=== PATIENT | male | born 1990 | race Hispanic/Latino ===

== ENCOUNTER → 2025-01-05 | Day surgery (SDC) | payer OTHER ==
[~2025-01-05] MED LIST: B12 ACTIVE1000 MCG PO; LIDOCAINE HCL 2% LOCAL INJ 5 ML SDV VIAL INJ ONE; MAGNESIUM OXID400 MG PO; METFORMIN HCL500 M2 PO; MIDAZOLAM HCL 2 MG/2 ML VIAL ONE; OMEGA 3 1,0001 EACH PO; PROPOFOL IV EMULSION 10 MG/ML 20 ML VIAL ONE; VITAMIN C1000 MG PO
[2025-01-05] MEDS: LACTATED RINGER'S 1,000 ML ONE (08:55)
[2025-01-05 10:17] VITALS: TEMP 97.5
[2025-01-05 10:40] VITALS: BP 139/88; PULSE 75; RESP 18; O2SAT 98
== END | disposition home or self-care (01) ==
LOC: OR 05:00
PROVIDERS: ATTEND Internal Medicine Gastroenterology
DX: K62.5 Hemorrhage of anus and rectum (principal); D12.2 Benign neoplasm of ascending colon; D12.0 Benign neoplasm of cecum; D12.3 Benign neoplasm of transverse colon; K57.30 Diverticulosis of large intestine without perforation or abscess without bleeding; K64.8 Other hemorrhoids; Z87.19 Personal history of other diseases of the digestive system; K76.0 Fatty (change of) liver, not elsewhere classified; R74.8 Abnormal levels of other serum enzymes; E11.9 Type 2 diabetes mellitus without complications; R03.0 Elevated blood-pressure reading, without diagnosis of hypertension; Z79.84 Long term (current) use of oral hypoglycemic drugs; Z68.41 Body mass index [BMI] 40.0-44.9, adult
CPT/HCPCS: 45385; J2003; J2250; J2704; J7121; 45384

== ENCOUNTER 2025-01-17 23:12 | Inpatient (IN) | payer OTHER ==
[~2025-01-17] VITALS: Ht 160 cm; Wt 112.2 kg
[~2025-01-17 23:12] MED LIST changes: -LIDOCAINE HCL 2% LOCAL INJ 5 ML SDV VIAL INJ ONE; -MIDAZOLAM HCL 2 MG/2 ML VIAL ONE; -PROPOFOL IV EMULSION 10 MG/ML 20 ML VIAL ONE
[2025-01-17 23:18] VITALS: TEMP 99.1
[2025-01-17] MEDS ORDERED: SODIUM CHLORIDE 0.9% 1000ML 1,000 ML IV SCH (23:30)
[2025-01-17] MEDS: SODIUM CHLORIDE 0.9% 1000ML 1,000 ML IV STA (23:42)
[2025-01-17 23:54] LABS: BASOPHILS % 0.3 % (0.0-1.0); EOSINOPHILS # (AUTO) 0.4 (0.0-0.4); HEMATOCRIT 34.3 % (38.2-49.6); HEMOGLOBIN 11.2 g/dL (14.0-18.0); LYMPHOCYTES % 24.7 % (18.0-39.1); MEAN CORPUSCULAR HEMOGLOBIN 28.6 pg (28-32); MEAN CORPUSCULAR HGB CONC 32.7 g/dL (31-35); MEAN CORPUSCULAR VOLUME 87.5 fL (81-99); MONOCYTES # (AUTO) 0.5 (0.2-0.8); NEUTROPHILS % 66.4 % (38.7-80.0); PLATELET COUNT 333 x10e3/uL (140-360); RED BLOOD COUNT 3.92 x10e6/uL (4.3-5.7); RED CELL DISTRIBUTION WIDTH 12.6 % (11.7-14.4); WHITE BLOOD COUNT 12.14 x10e3/uL (4.8-10.8)
[2025-01-18] VITALS (11 sets, daily range): BP systolic 100–116; BP diastolic 63–86; PULSE 60–88; RESP 16–20; TEMP 97.3–98.4; O2SAT 96–100
[2025-01-18 00:02] LABS: INR 0.97; PARTIAL THROMBOPLASTIN TIME 28.2 seconds (23.8-35.5); PROTHROMBIN TIME 13.5 seconds (11.9-14.5)
[2025-01-18 00:11] LABS: ALBUMIN 3.9 g/dL (3.5-5.0); ALBUMIN/GLOBULIN RATIO 1.3 (0.8-2.0); ANION GAP 15.8 mmol/L (8-16); BILIRUBIN,TOTAL 0.2 mg/dL (0.2-1.2); CALCIUM 9.4 mg/dL (8.4-10.2); CREATININE, SERUM 0.96 mg/dL (0.72-1.25); POTASSIUM 3.8 mmol/L (3.5-5.1)
[2025-01-18] MEDS ORDERED: SODIUM CHLORIDE 0.9% 100 ML ONE (00:59)
[2025-01-18] MEDS ORDERED: IOPAMIDOL 370 MG/ML 100 ML INFUS..BTL INJ ONE (01:00)
[2025-01-18 01:46] LABS: HEMATOCRIT 28.9 % (38.2-49.6); HEMOGLOBIN 9.4 g/dL (14.0-18.0)
[2025-01-18] MEDS ORDERED: DEXTROSE 50% SYRINGE 50 ML IV PRN (02:30)
[2025-01-18] MEDS: SODIUM CHLORIDE 0.9% 1000ML 1,000 ML IV SCH (03:08)
[2025-01-18] MEDS: SODIUM CHLORIDE 0.9% 250ML 250 ML IV ONE (03:30)
[2025-01-18] MEDS ORDERED: MOUNJARO2.5 MG/0.5 INJ (04:13)
[2025-01-18 07:15] LABS: HEMATOCRIT 31.7 % (38.2-49.6); HEMOGLOBIN 9.9 g/dL (14.0-18.0)
[2025-01-18] MEDS: INSULIN REGULAR, HUMAN 100 UNIT/1 ML SQ SCH (07:30)
[2025-01-18 13:21] LABS: HEMATOCRIT 29.4 % (38.2-49.6); HEMOGLOBIN 9.5 g/dL (14.0-18.0)
[2025-01-18] MEDS ORDERED: SEVOFLURANE INHAL SOLN 250 ML PEN BTL ONE (14:39)
[2025-01-18] MEDS: BISACODYL 5 MG TAB EC PO ONE ×3 (21:36→22:51)
[2025-01-19] VITALS: BP 124/78; PULSE 70; RESP 20; TEMP 98; O2SAT 97
[2025-01-19 02:09] LABS: % IRON SATURATION 17 % (15-50); IRON 67 ug/dL (65-175); TOTAL IRON BINDING CAPACITY 386 ug/dL (261-478); TRANSFERRIN 276 mg/dL (174-364)
[2025-01-19 02:43] LABS: FOLATE 5.8 ng/mL (7.0-15.4)
[2025-01-19 04:00] VITALS: BP 119/61; PULSE 63; RESP 20; TEMP 97.7; O2SAT 98
[2025-01-19] MEDS: CITRATE OF MAGNESIA 300ML BOTTLE PO SCH (04:52)
[2025-01-19] MEDS ORDERED: CITRATE OF MAGNESIA 300ML BOTTLE PO SCH (05:00)
[2025-01-19 05:21] LABS: HEMATOCRIT 29.7 % (38.2-49.6); HEMOGLOBIN 9.4 g/dL (14.0-18.0)
[2025-01-19 05:58] LABS: ALBUMIN 3.4 g/dL (3.5-5.0); ALBUMIN/GLOBULIN RATIO 1.2 (0.8-2.0); ANION GAP 11.7 mmol/L (8-16); BILIRUBIN,TOTAL 0.2 mg/dL (0.2-1.2); CALCIUM 8.5 mg/dL (8.4-10.2); CREATININE, SERUM 0.73 mg/dL (0.72-1.25); POTASSIUM 3.7 mmol/L (3.5-5.1); TOTAL PROTEIN 6.2 g/dL (6.5-8.1)
[2025-01-19 08:32] VITALS: BP 121/75; PULSE 74; RESP 19; TEMP 97.7; O2SAT 95
[2025-01-19 09:00] VITALS: BP 121/19; PULSE 74; RESP 19; TEMP 98.8; O2SAT 19
[2025-01-19 12:13] VITALS: BP 111/78; PULSE 58; RESP 19; TEMP 98.1; O2SAT 100
[2025-01-19] MEDS ORDERED: FENTANYL CITRATE/PF 100MCG/2 ML INJ ONE (15:00)
[2025-01-19] MEDS ORDERED: PROPOFOL IV EMULSION 50 ML IV ONE (15:00)
[2025-01-19] MEDS ORDERED: LIDOCAINE HCL 2% LOCAL INJ 5 ML SDV VIAL INJ ONE (15:00)
[2025-01-19] MEDS ORDERED: PROPOFOL IV EMULSION 10 MG/ML 20 ML VIAL ONE (15:28)
[2025-01-19] MEDS ORDERED: GLUCAGON FOR INJ 1 MG VIAL ONE (15:32)
[2025-01-19] MEDS ORDERED: HYOSCYAMINE SULFATE 0.5 MG/ML INJ ONE (15:34)
[2025-01-19 17:19] VITALS: BP 131/89; PULSE 80; RESP 19; TEMP 97.9; O2SAT 100
[2025-01-19] MEDS ORDERED: PANTOPRAZOLE SO40 MG PO (19:44)
== END 2025-01-19 20:18 | disposition home or self-care (01) | DRG 378 ==
LOC: ER 23:27 → ERHOLD 01-18 02:13 → MED/SURG2 01-18 03:03
PROVIDERS: ADMIT Internal Medicine; ATTEND Internal Medicine
PROC: 0DBP8ZX Excision of Rectum, Via Natural or Artificial Opening Endoscopic, Diagnostic (ICD-10-PCS; 2025-01-19)
PROC: 0DB78ZX Excision of Stomach, Pylorus, Via Natural or Artificial Opening Endoscopic, Diagnostic (ICD-10-PCS; principal; 2025-01-19 15:05)
PROC: 0W3P8ZZ Control Bleeding in Gastrointestinal Tract, Via Natural or Artificial Opening Endoscopic (ICD-10-PCS; 2025-01-19 15:05)
DX: K57.31 Diverticulosis of large intestine without perforation or abscess with bleeding (principal); Z68.41 Body mass index [BMI] 40.0-44.9, adult; K29.50 Unspecified chronic gastritis without bleeding; K20.90 Esophagitis, unspecified without bleeding; K62.9 Disease of anus and rectum, unspecified; Z86.0100 Personal history of colon polyps, unspecified; Z98.890 Other specified postprocedural states; R00.0 Tachycardia, unspecified; E66.01 Morbid (severe) obesity due to excess calories; E11.9 Type 2 diabetes mellitus without complications; Z79.85 Long-term (current) use of injectable non-insulin antidiabetic drugs; Z79.84 Long term (current) use of oral hypoglycemic drugs; K76.0 Fatty (change of) liver, not elsewhere classified; F17.290 Nicotine dependence, other tobacco product, uncomplicated; Z79.899 Other long term (current) drug therapy
CPT/HCPCS: 36415; 43239; 44391; 74174; 80053; 82607; 82746; 82948; 83540; 84466; 85014; 85018; 85025; 85045; 85610; 85730; 86850; 86900; 86920; 88305; 93005; 94799; 99284; J1610; J1980; J2003; J2470; J7030; J7050; Q9967